=== PATIENT | male | born 1965 | race Hispanic/Latino ===

== ENCOUNTER 2017-12-30 21:45 | Emergency (ER) | payer SELFPAY ==
[2017-12-30 21:49] VITALS: BP 128/80; PULSE 71; RESP 16; TEMP 97.7; O2SAT 96
[2017-12-30] MEDS ORDERED: Tdap Vaccine 0.5 ml Vial (10-64 yrs) IM ONE (22:36)
[2017-12-30] MEDS ORDERED: Lidocaine 2% w Epi 1:100,000 Inj IJ ONE (22:44)
[2017-12-30] MEDS ORDERED: Povidone Iodine Oint 10% Foilpak UD ONE (22:44)
[2017-12-30 23:28] LABS: BASO # 0.1 K/uL (0.0-0.2); BASO % 0.8 % (0.0-2.0); EOS # 0.2 K/uL (0.0-0.7); EOS % 1.5 % (0.0-4.0); HEMOGLOBIN 15.1 g/dL (12.0-18.0); LYMPH # 2.6 K/uL (1.0-4.3); LYMPH % 22.7 % (20.0-40.0); MEAN CELL VOLUME 85.2 fl (80.0-94.0); MEAN CORPUSCULAR HEMOGLOBIN 28.3 pg (27.0-31.0); MEAN CORPUSCULAR HGB CONC 33.2 g/dL (33.0-37.0); MEAN PLATELET VOLUME 7.7 fl (7.2-11.7); MONO # 0.8 K/uL (0.0-0.8); MONO % 6.8 % (0.0-10.0); NEUT # 7.9 K/uL (1.8-7.0); NEUT % 68.2 % (50.0-75.0); NRBC % 0.4 % (0.0-0.0); RBC 5.34 Mil/uL (4.40-5.90); RED CELL DISTRIBUTION WIDTH 14.5 % (11.5-14.5); WHITE BLOOD COUNT 11.5 K/uL (4.8-10.8)
--- NOTE | 2017-12-30 23:30 | CT ---
EXAM: CT Head Without Intravenous Contrast CLINICAL HISTORY: 52 years old, male; Injury or trauma; Fall; Initial encounter; Blunt trauma (contusions or hematomas); Consciousness not specified; Additional info: Head injury TECHNIQUE: Axial computed tomography images of the head/brain without intravenous contrast. All CT scans at this facility use one or more dose reduction techniques, viz.: automated exposure control; ma/kV adjustment per patient size (including targeted exams where dose is matched to indication; i.e. head); or iterative reconstruction technique. Coronal and sagittal reformatted images were created and reviewed. COMPARISON: No relevant prior studies available. FINDINGS: Brain: Mild atrophy. No intracranial hemorrhage. No mass. No edema. Ventricles: No hydrocephalus. Bones/joints: No calvarial fracture. Mastoid air cells: No mastoid effusion. IMPRESSION: 1. No intracranial hemorrhage. 2. See facial bone CT report for additional details. 3. Incidental/non-acute findings are described above.
--- NOTE | 2017-12-30 23:34 | CT ---
EXAM: CT Cervical Spine Without Intravenous Contrast CLINICAL HISTORY: 52 years old, male; Injury or trauma; Fall; Initial encounter; Concussion /head injury; Injury details: Trip and fall down 15 steps TECHNIQUE: Axial computed tomography images of the cervical spine without intravenous contrast. All CT scans at this facility use one or more dose reduction techniques, viz.: automated exposure control; ma/kV adjustment per patient size (including targeted exams where dose is matched to indication; i.e. head); or iterative reconstruction technique. Coronal and sagittal reformatted images were created and reviewed. COMPARISON: No relevant prior studies available. FINDINGS: Vertebrae: No acute fracture. Discs/spinal canal/neural foramina: Early to mild degenerative disc disease within mid cervical spine. Mild degenerative disc disease within lower cervical spine. Mild disc herniations within mid and lower cervical spine, suboptimally evaluated. Mild indentation thecal sac/cord mid cervical spine. Neuroforaminal narrowing within lower cervical spine. Soft tissues: Unremarkable. Sinuses: Scattered mucosal thickening of visualized sinuses. Lung apices: Unremarkable as visualized. IMPRESSION: 1. No fracture. 2. Incidental/non-acute findings are described above.
[2017-12-30 23:39] LABS: ALB/GLOB RATIO 1.5 (1.0-2.1); ALBUMIN 4.3 g/dL (3.5-5.0); ALT/SGPT 44 U/L (21-72); AST/SGOT 26 U/L (17-59); BLOOD UREA NITROGEN 10 mg/dl (9-20); GFR AFRICAN-AMERICAN > 60; GFR NON-AFRICAN AMERICAN > 60
--- NOTE | 2017-12-30 23:41 | CT ---
EXAM: CT Maxillofacial Without Intravenous Contrast CLINICAL HISTORY: 52 years old, male; Injury or trauma; Fall; Initial encounter; Blunt trauma (contusions or hematomas); Orbit/periorbital; Right; Injury details: Trip and fall down 15 steps; Additional info: Facial injury TECHNIQUE: Axial computed tomography images of the face without intravenous contrast. All CT scans at this facility use one or more dose reduction techniques, viz.: automated exposure control; ma/kV adjustment per patient size (including targeted exams where dose is matched to indication; i.e. head); or iterative reconstruction technique. Coronal and sagittal reformatted images were created and reviewed. COMPARISON: No relevant prior studies available. FINDINGS: Bones/joints: Comminuted fracture lateral wall of right orbit. Nondisplaced fracture anterior wall of right maxillary sinus. Nondisplaced fracture posterolateral wall of right maxillary sinus. Nondisplaced fracture anterior floor of right orbit. Nondisplaced fracture right zygomatic arch. Soft tissues: Right periorbital/maxillary soft tissue swelling. Orbits: Mild exophthalmus right orbit. Minimal air within right orbit. Sinuses: Moderate mucosal thickening/fluid of left frontal sinus. [id number] mucosal thickening of ethmoid sinuses. Minimal to mild mucosal thickening of maxillary, sphenoid sinuses. IMPRESSION: 1. Facial fractures as above. 2. Sinus disease. 3. Incidental/non-acute findings are described above.
[2017-12-30 23:43] LABS: PARTIAL THROMBOPLASTIN TIME 26.6 Seconds (25.6-37.1); PROTHROMBIN TIME 10.5 Seconds (9.8-13.1)
--- NOTE | 2017-12-30 23:53 | ED PDOC ---
HPI: Head Injury Time Seen by Provider: 12/30/17 21:52 Chief Complaint (Nursing): Trauma Chief Complaint (Provider): Head injury post fall History Per: Patient, Other (friend) History/Exam Limitations: no limitations Injury Occurred (Timing): Just Before Arrival Patient States: Fell Striking Head Additional Complaint(s): 52 yo male, accompanied by a friend, presents to the ED complaining of a head injury post fall, onset of just prior to arrival. The patient's friend reports that the patient fell going down a flight of stairs and sustained injuries to his head and face, but reports of no loss of consciousness. Of note, patient and friend admit to the provider that alcohol was consumed prior to the accident and that the patient was intoxicated. He denies dizziness and blurry vision, but reports of headache, lesions and bruises to his face. Past Medical History Reviewed: Historical Data, Nursing Documentation, Vital Signs Vital Signs: Last Vital Signs Temp 97.7 F 12/30/17 21:46 Pulse 71 12/30/17 21:46 Resp 16 12/30/17 21:46 BP 128/80 12/30/17 21:46 Pulse Ox 96 12/30/17 21:46 - Medical History PMH: No Chronic Diseases - Surgical History Surgical History: No Surg Hx - Family History Family History: States: Unknown Family Hx - Social History Current smoker - smoking cessation education provided: No Ex-Smoker (has not smoked in the last 12 months): No Alcohol: Social Drugs: Denies - Home Medications Home Medications: Ambulatory Orders Medication Instructions Recorded Amoxicillin/Clavulanate [Augmentin 1 tab PO BID #14 tab 12/31/17 875 MG-125 MG] Ibuprofen [Motrin Tab] 600 mg PO Q8 PRN #30 tab 12/31/17 traMADol [Ultram] 50 mg PO TID PRN #15 tab 12/31/17 - Allergies Allergies/Adverse Reactions: Allergies Allergy/AdvReac Type Severity Reaction Status Date / Time No Known Allergies Allergy Verified 12/30/17 21:46 Review of Systems ROS Statement: Except As Marked, All Systems Reviewed And Found Negative Constitutional: Negative for: Fever Skin: Positive for: Lesions (to face), Bruising (to face) Neurological: Positive for: Headache. Negative for: Dizziness, Other (blurry vision) Physical Exam - Reviewed Nursing Documentation Reviewed: Yes Vital Signs Reviewed: Yes - Physical Exam Appears: Positive for: Well (tired appearing), No Acute Distress Head Exam: Negative for: NORMAL INSPECTION (3cm linear laceration within his right eyebrow; ) Skin: Positive for: Warm, Dry Eye Exam: Positive for: EOMI (NO pain with movement, NO blurry vision induced), PERRL, Periorbital swelling (periorbital ecchymosis and edema to right side of the face), Periorbital tenderness, Conjunctival injection ENT: Positive for: Other (dry blood bilaterally to nares; mild edema to nasal bridge) Neck: Positive for: Painless ROM, Supple Cardiovascular/Chest: Positive for: Regular Rate, Rhythm. Negative for: Murmur Respiratory: Positive for: Normal Breath Sounds. Negative for: Respiratory Distress Gastrointestinal/Abdominal: Positive for: Soft. Negative for: Tenderness Back: Positive for: Normal Inspection. Negative for: Decreased ROM Extremity: Positive for: Normal ROM. 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 Negative for: Motor/Sensory Deficits, Facial Droop - Laboratory Results Result Diagrams: 12/30/17 23:23 12/30/17 23:23 - ECG O2 Sat by Pulse Oximetry: 96 (RA) Pulse Ox Interpretation: Normal Medical Decision Making Medical Decision Making: Time: --22:36 Impression: --Head and nasal injury with a facial laceration in setting of intoxication Plan: --Blood Type and Screen --Tetanus/Reduced Dip 0.5ml --IV Insertion Reassess --23:29 EXAM: CT Head Without Intravenous Contrast CLINICAL HISTORY: 52 years old, male; Injury or trauma; Fall; Initial encounter; Blunt trauma ( contusions or hematomas); Consciousness not specified; Additional info: Head injury TECHNIQUE: Axial computed tomography images of the head/brain without intravenous contrast. All CT scans at this facility use one or more dose reduction techniques, viz.: automated exposure control; ma/kV adjustment per patient size (including targeted exams where dose is matched to indication; i.e. head); or iterative reconstruction technique. Coronal and sagittal reformatted images were created and reviewed. COMPARISON: No relevant prior studies available. FINDINGS: Brain: Mild atrophy. No intracranial hemorrhage. No mass. No edema. Ventricles: No hydrocephalus. Bones/joints: No calvarial fracture. Mastoid air cells: No mastoid effusion. IMPRESSION: 1. No intracranial hemorrhage. 2. See facial bone CT report for additional details. 3. Incidental/non-acute findings are described above. --23:33 EXAM: CT Cervical Spine Without Intravenous Contrast CLINICAL HISTORY: 52 years old, male; Injury or trauma; Fall; Initial encounter; Concussion /head injury; Injury details: Trip and fall down 15 steps TECHNIQUE: Axial computed tomography images of the cervical spine without intravenous contrast. All CT scans at this facility use one or more dose reduction techniques, viz.: automated exposure control; ma/kV adjustment per patient size (including targeted exams where dose is matched to indication; i.e. head); or iterative reconstruction technique. Coronal and sagittal reformatted images were created and reviewed. COMPARISON: No relevant prior studies available. FINDINGS: Vertebrae: No acute fracture. Discs/spinal canal/neural foramina: Early to mild degenerative disc disease within mid cervical spine. Mild degenerative disc disease within lower cervical spine. Mild disc herniations within mid and lower cervical spine, suboptimally evaluated. Mild indentation thecal sac/ cord mid cervical spine. Neuroforaminal narrowing within lower cervical spine. Soft tissues: Unremarkable. Sinuses: Scattered mucosal thickening of visualized sinuses. Lung apices: Unremarkable as visualized. IMPRESSION: 1. No fracture. 2. Incidental/non-acute findings are described above. --23:41 EXAM: CT Maxillofacial Without Intravenous Contrast CLINICAL HISTORY: 52 years old, male; Injury or trauma; Fall; Initial encounter; Blunt trauma ( contusions or hematomas); Orbit/periorbital; Right; Injury details: Trip and fall down 15 steps; Additional info: Facial injury TECHNIQUE: Axial computed tomography images of the face without intravenous contrast. All CT scans at this facility use one or more dose reduction techniques, viz.: automated exposure control; ma/kV adjustment per patient size (including targeted exams where dose is matched to indication; i.e. head); or iterative reconstruction technique. Coronal and sagittal reformatted images were created and reviewed. COMPARISON: No relevant prior studies available. FINDINGS: Bones/joints: Comminuted fracture lateral wall of right orbit. Nondisplaced fracture anterior wall of right maxillary sinus. Nondisplaced fracture posterolateral wall of right maxillary sinus. Nondisplaced fracture anterior floor of right orbit. Nondisplaced fracture right zygomatic arch. Soft tissues: Right periorbital/maxillary soft tissue swelling. Orbits: Mild exophthalmus right orbit. Minimal air within right orbit. Sinuses: Moderate mucosal thickening/fluid of left frontal sinus. Mild-to- moderate mucosal thickening of ethmoid sinuses. Minimal to mild mucosal thickening of maxillary, sphenoid sinuses. IMPRESSION: 1. Facial fractures as above. 2. Sinus disease. 3. Incidental/non-acute findings are described above. Thank you for allowing us to participate in the care of your patient. DW pt findings and plan of care. Mandatory follow up with [facility]. Clinic information given. Ambulating without difficultly in ER. Scribe Attestation: Documented by Aaron Julian acting as a scribe for Denisse Camara MD. Provider Attestation: All medical record entries made by the Scribe were at my direction and personally dictated by me. I have reviewed the chart and agree that the record accurately reflects my personal performance of the history, physical exam, medical decision making, and the department course for this patient. I have also personally directed, reviewed, and agree with the discharge instructions and disposition. Procedures - Laceration/Wound Repair Right Upper Face Wound Length (cm): 3 Wound's Depth, Shape: superficial, linear Wound Explored: clean Irrigated w/ Saline (ccs): 250 Betadine Prep?: Yes Anesthesia: Lidocaine w/ Epi Wound Repaired With: Sutures Suture Size/Type: 4:0, proline Number of Sutures: 8 Wound Complexity: Simple Disposition - Clinical Impression Clinical Impression: Orbit fracture, right, Maxillary sinus fracture - Disposition Disposition: Routine/Home Disposition Time: 00:00 Condition: IMPROVED Additional Instructions: FOLLOW UP AT [id number] ([facility]) FOR FURTHER EVALUATION [facility] [phone] CALL TOMORROW TO SETUP APPOINTMENT WITHIN A WEEK TAKE ANTIBIOTICS PRESCRIBED STITCHES NEED TO BE REMOVED IN 5-7 DAYS APPLY NEOSPORIN OR BACITRACIN TWICE A DAY TO WOUNDS Prescriptions: Amoxicillin/Clavulanate [Augmentin 875 MG-125 MG] 1 tab PO BID #14 tab Ibuprofen [Motrin Tab] 600 mg PO Q8 PRN #30 tab PRN Reason: Pain, Moderate (4-7) traMADol [Ultram] 50 mg PO TID PRN #15 tab PRN Reason: SEVERE PAIN ONLY Instructions: Laceration Repair With Stitches (DC), Skull and Facial Fractures (DC) Forms: [employer] (Danish)
[2017-12-31] MEDS ORDERED: Tdap Vaccine 0.5 ml Vial (10-64 yrs) IM ONE (00:26)
== END 2017-12-31 01:00 | disposition home or self-care (01) ==
LOC: H.ER 21:45
DX: S02.80XA Fracture of other specified skull and facial bones, unspecified side, initial encounter for closed fracture (principal); S02.40CA Maxillary fracture, right side, initial encounter for closed fracture; W10.9XXA Fall (on) (from) unspecified stairs and steps, initial encounter; Z87.891 Personal history of nicotine dependence; Z23 Encounter for immunization
CPT/HCPCS: 12013; 70450; 70486; 72125; 80053; 83735; 84100; 85025; 85610; 85730; 86850; 86900; 90471; 90715; 99284; G0480